=== PATIENT | female | born 1980 | race Caucasian/White ===

== ENCOUNTER 2021-07-20 16:31 | Emergency (ER) | payer OTHER ==
[2021-07-20] MEDS ORDERED: PREDNISONE 20MG20 MG PO (18:21)
[2021-07-20] MEDS ORDERED: ZOVIRAX800 MG PO (18:21)
== END 2021-07-20 18:43 | disposition home or self-care (01) ==
LOC: FER 16:31
DX: G51.0 Bell's palsy (principal); F17.210 Nicotine dependence, cigarettes, uncomplicated
CPT/HCPCS: 70450